=== PATIENT | female | born 1980 | race Caucasian/White ===

== ENCOUNTER 2017-10-07 08:03 | Emergency (ER) | payer SELFPAY ==
[~2017-10-07] VITALS: Ht 165.1 cm; Wt 49.0 kg
[~2017-10-07 08:03] MED LIST: BUSP10TA8 PO; EPIP0.3I IM; OXYC30TA3 PO; PRED20 PO; QUEN12.5 PO; RANI150 PO; XANA2TAB2 PO
[2017-10-07 08:07] VITALS: BP 125/58; PULSE 69; RESP 16; TEMP 99; O2SAT 99
--- NOTE | 2017-10-07 08:42 | PD ---
HPI Chief Complaint: GI Complaint Time Seen by Provider: 08:31 Travel History International Travel<30 days: No Contact w/Intl Traveler<30days: No Traveled to known affect area: No History of Present Illness HPI This 37-year-old female says she been sick for about 2 days. She says been having almost constant diarrhea. She has vomited 5 or 6 times. She seems to get nauseated more at night. She has been able to drink some fluids. She has had a sore throat and says that time she is coughing and feels like she cannot breathe. She has not smoked for the last 2 days. She usually smokes 7 8 cigarettes a day. She has not taken any medication for the vomiting or the diarrhea. She has been on albuterol in the past does not have it right now. She is not aware of fever or chills. 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.) Immunizations Current: Yes Migraines: Yes ?: Unknown LMP: [id number] Menopausal: No : 4 Para: 3 Miscarriage: 0 : 1 Tubal Ligation: Yes Past Surgical History Section: Yes (x 2 (also has twin girls)) Social History Alcohol Use: No Tobacco Use: Yes (/2-1 ppd) Substance Use: No (STATES NONE SINCE 2005) Allergies-Medications (Allergen,Severity, Reaction): Coded Allergies: bee venom protein (honey bee) (Unverified Allergy, Severe, Anaphylaxis, 10/07/17) cat dander (Unverified Allergy, Intermediate, 10/07/17) gabapentin (Unverified Allergy, Unknown, PT DENIES, 10/07/17) Reported Meds & Prescriptions Reported Meds & Active Scripts Active No Active Prescriptions or Reported Medications Review of Systems Except as stated in HPI: all other systems reviewed are Neg General / Constitutional: No: Fever, Chills Eyes: No: Diploplia, Blurred Vision HENT: Positive: Sore Throat, No: Headaches, Vertigo Cardiovascular: No: Chest Pain or Discomfort Respiratory: Positive: Cough, Shortness of Breath Gastrointestinal: Positive: Vomiting, Diarrhea Genitourinary: No: Urgency, Frequency Musculoskeletal: No: Myalgias, Arthralgias Skin: No Rash Neurologic: Positive: Weakness Endocrine: No: Heat Intolerance, Cold Intolerance Hematologic/Lymphatic: No: Easy Bruising Physical Exam Narrative GENERAL: Well-developed female SKIN: Focused skin assessment warm/dry. HEAD: Atraumatic. Normocephalic. EYES: Pupils equal and round. No scleral icterus. No injection or drainage. ENT: No nasal bleeding or discharge. Mucous membranes pink and moist. NECK: Trachea midline. No JVD. CARDIOVASCULAR: Regular rate and rhythm. No murmur appreciated. RESPIRATORY: No accessory muscle use. Clear to auscultation. Breath sounds equal bilaterally. GASTROINTESTINAL: Abdomen soft, non-tender, nondistended. Hepatic and splenic margins not palpable. MUSCULOSKELETAL: No obvious deformities. No clubbing. No cyanosis. No edema. NEUROLOGICAL: Awake and alert. No obvious cranial nerve deficits. Motor grossly within normal limits. Normal speech. PSYCHIATRIC: Appropriate mood and affect; insight and judgment normal. Data Data Last Documented VS Vital Signs Date Time Temp Pulse Resp B/P (MAP) Pulse Ox O2 Delivery O2 Flow Rate FiO2 10/07/17 10:33 64 16 122/52 (75) 99 10/07/17 08:07 99.0 Orders Orders Urinalysis - C+S If Indicated (10/07/17 08:10) Ed Urine Pregnancytest Poc (10/07/17 08:10) Complete Blood Count With Diff (10/07/17 08:36) Basic Metabolic Panel (Bmp) (10/07/17 08:36) Chest, Single Ap (10/07/17 08:36) Sodium Chlor 0.9% 1000 Ml Inj (Ns 1000 M (10/07/17 08:45) Ondansetron Inj (Zofran Inj) (10/07/17 08:45) Loperamide (Imodium) (10/07/17 08:45) Labs Laboratory Tests Test 10/07/17 08:30 10/07/17 08:45 Urine Collection Type CLEAN CATCH Urine Color YELLOW Urine Turbidity CLEAR Urine pH 6.5 Urine Specific [place] 1.010 Urine Protein NEG mg/dL Urine Glucose (UA) NEG mg/dL Urine Ketones NEG mg/dL Urine Occult Blood TRACE Urine Nitrite NEG Urine Bilirubin NEG Urine Urobilinogen 0.2 MG/DL Urine Leukocyte Esterase NEG Urine RBC 0-3 /hpf Urine Squamous Epithelial Cells 6-8 /hpf Urine Bacteria OCC /hpf Microscopic Urinalysis Comment CULT NOT INDICATED White Blood Count 6.4 TH/MM3 Red Blood Count 4.64 MIL/MM3 Hemoglobin 13.7 GM/DL Hematocrit 44.1 % Mean Corpuscular Volume 95.1 FL Mean Corpuscular Hemoglobin 29.5 PG Mean Corpuscular Hemoglobin Concent 31.1 % Red Cell Distribution Width 13.6 % Platelet Count 258 TH/MM3 Mean Platelet Volume 8.3 FL Neutrophils (%) (Auto) 79.7 % Lymphocytes (%) (Auto) 15.8 % Monocytes (%) (Auto) 1.8 % Eosinophils (%) (Auto) 0.8 % Basophils (%) (Auto) 1.9 % Neutrophils # (Auto) 5.1 TH/MM3 Lymphocytes # (Auto) 1.0 TH/MM3 Monocytes # (Auto) 0.1 TH/MM3 Eosinophils # (Auto) 0.1 TH/MM3 Basophils # (Auto) 0.1 TH/MM3 CBC Comment DIFF FINAL Differential Comment Blood Urea Nitrogen 13 MG/DL Creatinine 0.81 MG/DL Random Glucose 105 MG/DL Calcium Level 9.2 MG/DL Sodium Level 137 MEQ/L Potassium Level 5.4 MEQ/L Chloride Level 107 MEQ/L Carbon Dioxide Level 23.0 MEQ/L Anion Gap 7 MEQ/L Estimat Glomerular Filtration Rate 80 ML/MIN [facility] Medical Decision Making Medical Screen Exam Complete: Yes Emergency Medical Condition: Yes Medical Record Reviewed: Yes Differential Diagnosis Differential includes pneumonia, gastroenteritis, viral illness Narrative Course Chest x-ray is negative for pneumonia. Lab work is unremarkable. White count is 6000 suggestive of viral illness. Diagnosis Primary Impression: Gastroenteritis Scripts Ondansetron Odt (Zofran Odt) 4 Mg Tab 4 MG SL Q6HR Y for Nausea/Vomiting, #10 TAB 0 Refills Prov: Donnie Ko MD 10/07/17 Albuterol 18 GM Inh (Ventolin Hfa 18 GM Inh) 90 Mcg/Act Aer 2 PUFF INH Q4-6H Y for SHORTNESS OF BREATH, #1 INHALER 0 Refills Prov: Donnie Ko MD 10/07/17 Disposition: 01 DISCHARGE HOME Condition: Stable Donnie Ko MD Oct 07, 2017 08:42
[2017-10-07] MEDS ORDERED: SODIUM CHLOR 0.9% 1000 ML INJ 1,000 ML IV ONE (08:45)
[2017-10-07] MEDS ORDERED: ONDANSETRON HCL 4 MG/2 ML VIAL IV PUSH ONE (08:45)
[2017-10-07] MEDS ORDERED: LOPERAMIDE HCL 2 MG CAP PO ONE (08:45)
[2017-10-07 08:55] LABS: AUTOMATED NEUTROPHIL # 5.1 TH/MM3 (1.8-7.7); BASOPHIL # 0.1 TH/MM3 (0-0.2); BASOPHIL % 1.9 % (0.0-2.0); EOSINOPHIL # 0.1 TH/MM3 (0-0.4); EOSINOPHIL % 0.8 % (0.0-4.0); HEMATOCRIT 44.1 % (35.0-46.0); HEMOGLOBIN 13.7 GM/DL (11.6-15.3); LYMPH % 15.8 % (9.0-44.0); MEAN CELL VOLUME 95.1 FL (80.0-100.0); MEAN CORPUSCULAR HEMOGLOBIN 29.5 PG (27.0-34.0); MEAN CORPUSCULAR HGB CONC 31.1 % (32.0-36.0); MEAN PLATELET VOLUME 8.3 FL (7.0-11.0); MONO % 1.8 % (0.0-8.0); MONOCYTE # 0.1 TH/MM3 (0-0.9); NEUT % 79.7 % (16.0-70.0); PLATELET COUNT 258 TH/MM3 (150-450); RED BLOOD COUNT 4.64 MIL/MM3 (4.00-5.30); RED CELL DISTRIBUTION WIDTH 13.6 % (11.6-17.2); WHITE BLOOD COUNT 6.4 TH/MM3 (4.0-11.0)
[2017-10-07 09:04] LABS: BILIRUBIN, URINE NEG (NEG); BLOOD, URINE TRACE (NEG); GLUCOSE,URINE NEG (NEG); KETONE, URINE NEG (NEG); NITRITE,URINE NEG (NEG); PH, URINE 6.5 (5.0-8.5); URINE LEUKOCYTE ESTERASE NEG (NEG)
[2017-10-07 09:07] LABS: URINE COLOR YELLOW (YELLW/STRAW)
[2017-10-07 09:11] LABS: BACTERIA, URINE OCC /hpf; RBC, URINE 0-3 /hpf (0-3)
[2017-10-07 09:12] LABS: CALCIUM 9.2 MG/DL (8.5-10.1)
[2017-10-07 09:15] LABS: CREATININE 0.81 MG/DL (0.50-1.00)
--- NOTE | 2017-10-07 09:46 | RADRPT ---
EXAM DATE: 10/07/2017 9:13 AM EDT AGE/SEX: 37 years / Female INDICATIONS: Flu like symptoms x 2 days. Nausea, vomiting, diarrhea, cough, sore throat. CLINICAL DATA: This is the patient's initial encounter. Patient reports that signs and symptoms have been present for 2 days and indicates a pain score of 4/10. MEDICAL/SURGICAL HISTORY: . Smoker. section. Tubal ligation. COMPARISON: No prior [place] exams available for comparison. FINDINGS: A single AP view of the chest demonstrates the lungs to be symmetrically aerated without evidence of mass, infiltrate or effusion. The cardiomediastinal contours are unremarkable. Osseous structures a re intact. CONCLUSION: Negative examination. Electronically signed by: Zi Leija MD 10/07/2017 9:44 AM EDT
[2017-10-07 10:33] VITALS: BP 122/52
[2017-10-07] MEDS ORDERED: ZOFR4TAB3 SL (10:36)
[2017-10-07] MEDS ORDERED: VENTAER INH (10:36)
== END 2017-10-07 10:44 | disposition home or self-care (01) ==
LOC: PHED 08:03
DX: K52.9 Noninfective gastroenteritis and colitis, unspecified (principal); R05 Cough; J02.9 Acute pharyngitis, unspecified; M47.9 Spondylosis, unspecified; M16.10 Unilateral primary osteoarthritis, unspecified hip; F17.210 Nicotine dependence, cigarettes, uncomplicated; Z86.19 Personal history of other infectious and parasitic diseases
CPT/HCPCS: 71045; 80048; 81001; 84703; 85025; 96361; 96374; 99284; J2405; J7030